=== PATIENT | male | born 1965 | race Caucasian/White ===

== ENCOUNTER → 2016-08-25 | Outpatient (CLI) | payer OTHER ==
[2016-08-25 11:44] LABS: HEMATOCRIT 46.2 % (37.9-51.0); HGB HCT DIFFERENCE 1.8; MEAN CORPUSCULAR HEMOGLOBIN 30.9 pg (27.0-33.4); MEAN CORPUSCULAR HGB CONC 34.7 g/dL (32.0-36.0); MEAN CORPUSCULAR VOLUME 89 fl (80-97); RED BLOOD COUNT 5.18 10^6/uL (4.35-5.55); RED CELL DISTRIBUTION WIDTH 12.7 % (11.5-14.0); WHITE BLOOD COUNT 7.2 10^3/uL (4.0-10.5)
== END ==
LOC: OD 11:16
PROVIDERS: ATTEND Otolaryngology
DX: J32.9 Chronic sinusitis, unspecified (principal)
CPT/HCPCS: 36415; 85027

== ENCOUNTER 2016-09-07 06:26 | Day surgery (SDC) | payer OTHER ==
[2016-09-07] MEDS ORDERED: MIDAZOLAM 2 MG/2 ML INJ ONE (07:08)
[2016-09-07] MEDS ORDERED: HYDROMORPHONE HCL INJ/PF 2 MG/ML AMPULE ONE (07:08)
[2016-09-07] MEDS ORDERED: FENTANYL CITRATE INJ/PF 100 MCG/2 ML AMPUL ONE (07:08)
[2016-09-07] MEDS ORDERED: SUCCINYLCHOLINE CHLORIDE INJ 200 MG/10 ML VIAL ONE (07:09)
[2016-09-07] MEDS ORDERED: PROPOFOL INJ 200 MG/20 ML VIAL IV ONE (07:09)
[2016-09-07] MEDS ORDERED: OXYMETAZOLINE HCL 0.05% NASAL SPRAY 15 ML BOTTLE ONE (07:10)
[2016-09-07] MEDS ORDERED: LIDOCAINE 1%/EPINEPHRINE INJ 20 ML VIAL ONE (07:10)
[2016-09-07] MEDS ORDERED: BUPIVACAINE HCL 0.5%-EPI 1:200000 INJ/PF 30 ML VIAL ONE (07:11)
[2016-09-07] MEDS ORDERED: ONDANSETRON HCL INJ/PF 4 MG/2 ML SDV ONE (07:26)
[2016-09-07] MEDS ORDERED: DEXAMETHASONE SOD PHOS INJ 10 MG/1 ML VIAL ONE (07:26)
[2016-09-07] MEDS ORDERED: ACETAMINOPHEN 100 ML IV ONE (07:27)
[2016-09-07] MEDS ORDERED: DEXMEDETOMIDINE INJ 80 MCG/20 ML VIAL IV ONE (07:28)
[2016-09-07] MEDS ORDERED: CEFAZOLIN 1 GM/D5W RTU 1 GM/50 ML RTUPB IV ONE (08:15)
[2016-09-07] MEDS ORDERED: METOPROLOL TARTRATE PF/INJ 5 MG/5 ML SDV IV ONE (09:23)
--- NOTE | 2016-09-07 10:34 | OPERATIVE REPORT E ---
Operative Report NAME: KATARZYNA BAJWA : 1965 AGE: 50Y DATE OF SURGERY: 09/07/2016 ROOM: PREOPERATIVE DIAGNOSES: 1. Deviated nasal septum. 2. Prominent nasal turbinates. 3. Recurrent bilateral maxillo-ethmoid sinusitis. POSTOPERATIVE DIAGNOSES: 1. Deviated nasal septum. 2. Prominent nasal turbinates. 3. Recurrent bilateral maxillo-ethmoid sinusitis. OPERATIONS: 1. Nasal septoplasty. 2. Bilateral outfracture and coblation inferior turbinates. 3. Bilateral endoscopic supra turbinate antrostomies. SURGEON: LEONIDAS CLAY III, M.D. DIFFUSION OPERATOR: None. ANESTHESIA: General. ESTIMATED BLOOD LOSS: Less than 20 mL. FLUIDS: D5 Ringer's lactate. DRAINS: None. CULTURES: None. PROCEDURE: The patient was properly identified and the operative procedure discussed with the operating room personnel and we were all in agreement to proceed as scheduled with his septoplasty, bilateral outfracture, and coblation of his inferior turbinates and bilateral endoscopic supra- turbinate antrostomies. The patient was prepped and draped in the usual fashion. The nose was anesthetized with Afrin on cottonoids followed by injection with Marcaine 0.5% 1- 200,000 injected into the nasal mucosa. Hemitransfixion incision was developed through the membranous septum and the leading edge of the quadrilateral cartilage exposed. The mucoperichondrium and mucoperiosteum were elevated in the usual fashion. The quadrilateral cartilage was displaced into the right side of the nose. Deformities in the perpendicular plate of the ethmoid were removed with the use of Huong rongeurs. Approximately one half of the quadrilateral cartilage posteriorly was resected to correct the deflection. Approximately 1 mm of the inferior aspect was resected to fit the nasal crest. Each inferior turbinate was coblated along the medial margin and outfractured maximally. Attention was directed to the right middle meatus. The middle turbinate was displaced medially. The natural ostium was identified with a double ball seeker. Removal of the lower portion of the uncinate process was initiated with a microdebrider. The large secondary ostium was then connected to the primary ostium with side biting rongeurs, making an opening of approximately 1 to 1.5 cm into the right maxillary sinus. An identical procedure was performed in the left middle meatus. The wounds were closed in the usual fashion, a quilting suture applied to the nasal septum. Small Merocel packs 1 cm in size wrapped with Gelfoam replaced in each middle meatus and large Merocel packs 8 cm in size were placed in each nasal passage, tied to columella, and taped to the dorsum of the nose. The patient received 1 g of Kefzol intraoperatively and 10 mg of Decadron. He appeared to tolerate his procedure well and was returned to the recovery room in satisfactory condition. DICTATING PHYSICIAN: LEONIDAS CLAY III M.D. [id number] PHY#: [id number] ID: [id number] JOB#: [id number] ACCT: [id number] cc:LEONIDAS CLAY III, M.D. > MTDD
== END 2016-09-07 11:18 | disposition home or self-care (01) ==
LOC: SC 06:26
PROVIDERS: ATTEND Otolaryngology
PROC: 09BM4ZZ Excision of Nasal Septum, Percutaneous Endoscopic Approach (ICD-10-PCS; principal; 2016-09-07 07:30)
PROC: 09SL7ZZ Reposition Nasal Turbinate, Via Natural or Artificial Opening (ICD-10-PCS; 2016-09-07 07:30)
DX: J34.2 Deviated nasal septum (principal); J01.21 Acute recurrent ethmoidal sinusitis; J01.01 Acute recurrent maxillary sinusitis; J30.1 Allergic rhinitis due to pollen; Z79.899 Other long term (current) drug therapy
CPT/HCPCS: 30520; 30930; C1751; J2250; J3490 ×4; J0690; J3010; J1170; J0330; J2405; J2704; J1100; J0131; 160

== ENCOUNTER → 2019-03-12 | Day surgery (SDC) | payer OTHER ==
--- NOTE | 2019-03-12 16:08 | RADIOLOGY REPORT (SQ) ---
EXAM DESCRIPTION: ARTHRO SHOULDER INJECTION; FLUORO/NEEDLE PLACEMENT COMPLETED DATE/TIME: 03/12/2019 3:35 pm REASON FOR STUDY: IMPINGEMENT SYNDROME OF RIGHT SHOULDER M75.41 IMPINGEMENT SYNDROME OF RIGHT SHOUL IFTIKHAR COMPARISON: None. FLUOROSCOPY TIME: 0.4 minutes. 1 image saved to PACS. LIMITATIONS: None. PROCEDURE: Procedure, risks, benefits and alternatives explained to patient who then gave written co nsent. The right shoulder was marked and a time out was called for correct procedure verification. P osterior entry site marked using fluoroscopic guidance. Shoulder prepped and draped using sterile te chnique. Local anesthesia achieved using 1% lidocaine injection. Hypodermic needle introduced into the joint space under direct fluoroscopic visualization. Non-ionic contrast instilled to confirm intr a-articular position. Dilute gadolinium solution then injected. Needle removed and entry site covere d with sterile bandage. No immediate complications noted. TECHNIQUE: Digital images acquired during fluoroscopy and stored on PACS. Patient immediately take n to the MR suite for additional imaging. INJECTION LOCATION: Posterior right shoulder. CONTRAST TYPE AND AMOUNT: 12 mL Dotarem/Saline mixture. IMPRESSION: SUCCESSFUL NEEDLE PLACEMENT AND INJECTION FOR RIGHT SHOULDER MR ARTHROGRAM USING POSTERI OR APPROACH. COMMENT: Quality ID [id number]: Final reports for procedures using fluoroscopy that document radiation exp osure indices, or exposure time and number of fluorographic images (if radiation exposure indices are not available) TECHNICAL DOCUMENTATION: JOB ID: [id number] [email or web address]- All Rights Reserved Reading location - IP/workstation name: [email or web address]
--- NOTE | 2019-03-13 16:49 | RADIOLOGY REPORT (SQ) ---
EXAM DESCRIPTION: MRI RT UPPER JOINT WITH COMPLETED DATE/TIME: 03/12/2019 4:04 pm REASON FOR STUDY: IMPINGEMENT SYNDROME OF RIGHT SHOULDER M75.41 IMPINGEMENT SYNDROME OF RIGHT SHOUL IFTIKHAR COMPARISON: None. TECHNIQUE: Right shoulder images acquired and stored on PACS. Oblique coronal, oblique sagittal, and axial imaging to include fat sensitive sequences as T1, water sensitive sequences as FST2/STIR, and contrast sensitive sequences as FST1. LIMITATIONS: None. FINDINGS: JOINT DISTENTION: Adequate distention for interpretation. BONE MARROW AND CORTEX: Normal. No significant osteophytes. No edema or defects. AC JOINT: Type II acromion. Mild-moderate AC joint arthropathy. GLENOHUMERAL JOINT: No subluxation or dislocation. No focal chondral defects or reactive bone changes . ROTATOR CUFF: Mild tendinosis- partial tears in the distal portions of the supraspinatus and infraspi natus tendons. Contrast in the subacromial bursa is likely due to a small partial full-thickness tea r in the conjoined tendon region. No significant tendon retraction is identified. LABRUM AND BICEPS LABRAL COMPLEX: Normal signal in the rotator interval without tear of the superior glenohumeral ligament. Superior labrum, intra-articular long head biceps intact. Distal biceps in no rmal anatomic location in bicipital groove. No paralabral cysts. INFERIOR LABRAL COMPLEX: Bony glenoid and labrum intact. IGHL intact without thickening or tear. No p aralabral cysts. ADJACENT SOFT TISSUES: No masses or nodes. OTHER: No other significant finding. IMPRESSION: Contrast in the subacromial bursa is likely due to a small partial full-thickness tear i n the conjoined tendon region. No significant tendon retraction is identified.Mild tendinosis- part ial tears in the distal portions of the supraspinatus and infraspinatus tendons. No labral tear identified. TECHNICAL DOCUMENTATION: JOB ID: [id number] [place]-[id number] [employer]- All Rights Reserved Reading location - IP/workstation name: [email or web address]
== END ==
LOC: RAD 13:38
PROVIDERS: ATTEND Specialist/Technologist Athletic Trainer
DX: M75.41 Impingement syndrome of right shoulder (principal)
CPT/HCPCS: 73222; 77002; 23350; A9576

== ENCOUNTER → 2019-04-06 | Outpatient (CLI) | payer OTHER ==
[2019-04-06 15:30] LABS: ABSOLUTE EOSINOPHILS # (AUTO) 0.2 10^3/uL (0.0-0.6); ABSOLUTE LYMPHOCYTES (AUTO) 1.9 10^3/uL (0.5-4.7); ABSOLUTE MONOCYTES (AUTO) 0.6 10^3/uL (0.1-1.4); BASOPHILS % (AUTO) 0.6 % (0-2); EOSINOPHILS % (AUTO) 2.5 % (0-6); HEMATOCRIT 45.7 % (37.9-51.0); HEMOGLOBIN 16.2 g/dL (13.5-17.0); LYMPHOCYTES % (AUTO) 24.3 % (13-45); MEAN CORPUSCULAR HEMOGLOBIN 31.8 pg (27.0-33.4); MEAN CORPUSCULAR HGB CONC 35.3 g/dL (32.0-36.0); MEAN CORPUSCULAR VOLUME 90 fl (80-97); MONOCYTES % (AUTO) 7.8 % (3-13); PLATELET COUNT 237 10^3/uL (150-450); RED BLOOD COUNT 5.08 10^6/uL (4.35-5.55); RED CELL DISTRIBUTION WIDTH 13.3 % (11.5-14.0); SEGMENTED NEUTROPHILS % (AUTO) 64.8 % (42-78); TOTAL CELLS COUNTED % (AUTO) 100 %; WHITE BLOOD COUNT 7.7 10^3/uL (4.0-10.5)
[2019-04-06 15:42] LABS: ALBUMIN 4.8 g/dL (3.5-5.0); ALKALINE PHOSPHATASE 52 U/L (38-126); ANION GAP 12 (5-19); ASPARTATE AMINO TRANSFERASE 37 U/L (17-59); BILIRUBIN,DIRECT 0.1 mg/dL (0.0-0.4); BILIRUBIN,TOTAL 0.7 mg/dL (0.2-1.3); BLOOD UREA NITROGEN 12 mg/dL (7-20); CALCIUM 9.7 mg/dL (8.4-10.2); CARBON DIOXIDE 28 mmol/L (22-30); CHLORIDE 98 mmol/L (98-107); GLUCOSE 110 mg/dL (75-110); POTASSIUM 4.1 mmol/L (3.6-5.0); TOTAL PROTEIN 7.6 g/dL (6.3-8.2)
== END ==
LOC: OD 14:07
PROVIDERS: ATTEND Orthopaedic Surgery Sports Medicine
DX: Z11.2 Encounter for screening for other bacterial diseases (principal); I10 Essential (primary) hypertension
CPT/HCPCS: 36415; 80053; 85025; 87070

== ENCOUNTER 2019-07-07 04:16 | Inpatient (IN) | payer OTHER ==
[2019-07-07] MEDS ORDERED: ONDANSETRON HCL INJ/PF 4 MG/2 ML SDV IV ONE ×2 (04:52→06:13)
[2019-07-07] MEDS ORDERED: MORPHINE SULFATE 10 MG/ML INJ IV ONE ×2 (04:52→06:12)
[2019-07-07] MEDS ORDERED: NORMAL SALINE 1000 ML 1,000 ML IV ONE (04:52)
--- NOTE | 2019-07-07 04:53 | ER Document Report ---
ED GI/ - General Chief Complaint: Abdominal Pain Stated Complaint: STOMACH PAIN Time Seen by Provider: 07/07/19 04:46 Primary Care Provider: GISELE ROSS MD [Primary Care Provider] - Follow up as needed Notes: Patient is a 53-year-old male that comes emergency department for chief complaint of sharp pain in his mid to upper abdomen, pain started during the evening and worsened throughout the night. He denies nausea or vomiting, he had a normal bowel movement within the past day. He denies chest pain, flank pain, or any other symptoms. He has had an appendectomy, he has a history of hypertension and seasonal allergies, he denies smoking, reports rare alcohol, denies recreational drugs. TRAVEL OUTSIDE OF THE [place] IN LAST 30 DAYS: No - Related Data Allergies/Adverse Reactions: No Known Allergies Allergy (Unverified 09/03/16 14:17) Home Medications: lisinopril/HCTZ 20/12.5. zyrtec 10 mg qday. tramadol prn pain recent surg shoulder Past Medical History - General Information source: Patient - Social History Smoking Status: Never Smoker Frequency of alcohol use: Occasional Drug Abuse: None Lives with: Family Family History: Reviewed & Not Pertinent Patient has suicidal ideation: No Patient has homicidal ideation: Yes - Past Medical History Cardiac Medical History: Reports: Hx Hypertension Denies: Hx Heart Attack Pulmonary Medical History: Denies: Hx Asthma Neurological Medical History: Denies: Hx Cerebrovascular Accident, Hx Seizures GI Medical History: Denies: Hx Hepatitis, Hx Hiatal Hernia, Hx Ulcer Infectious Medical History: Denies: Hx Hepatitis Past Surgical History: Reports: Hx Appendectomy. Denies: Hx Open Heart Surgery, Hx Pacemaker Review of Systems - Review of Systems Constitutional: No symptoms reported EENT: No symptoms reported Cardiovascular: No symptoms reported Respiratory: No symptoms reported Gastrointestinal: See HPI Genitourinary: No symptoms reported Male Genitourinary: No symptoms reported Musculoskeletal: No symptoms reported Skin: No symptoms reported Hematologic/Lymphatic: No symptoms reported Neurological/Psychological: No symptoms reported Physical Exam - Vital signs Vitals: Temp Pulse Resp BP Pulse Ox 97.7 F 85 20 155/92 H 100 07/07/19 04:21 07/07/19 04:21 07/07/19 04:21 07/07/19 04:21 07/07/19 04:21 - Notes Notes: GENERAL: Patient appears slightly anxious and slightly uncomfortable but not in severe distress HEAD: Normocephalic, atraumatic. EYES: Pupils equal, round, and reactive to light. Extraocular movements intact. ENT: Oral mucosa moist, tongue midline. Oropharynx unremarkable. Airway patent. LUNGS: Clear to auscultation bilaterally, no wheezes, rales, or rhonchi. No respiratory distress. HEART: Regular rate and rhythm. No murmur ABDOMEN: Patient is diffusely tender over the mid to upper abdomen with wincing and some guarding. There appears to be diastases recti but there is no overt hernia or incarcerated hernia noted. There is no rigidity or rebound te nderness. Bowel sounds are present throughout. GENITOURINARY: No swelling, tenderness, or concerning findings noted EXTREMITIES: Moves all 4 extremities spontaneously. No edema, normal radial and dorsalis pedis pulses bilaterally. No cyanosis. BACK: no cervical, thoracic, lumbar midline tenderness. No saddle anesthesia, normal distal neurovascular exam. NEUROLOGICAL: Alert and oriented x3. Normal speech. Cranial nerves II through XII grossly intact. PSYCH: Slightly anxious SKIN: Warm, dry, normal turgor. No rashes or lesions noted. Course - Re-evaluation Re-evalutation: Patient is uncomfortable and very tender in the general upper abdomen. His vital signs are unremarkable. CBC unremarkable except for elevated hemoglobin, urinalysis unremarkable other than elevated specific gravity. Chemistry still pending. I reevaluated patient, he is still uncomfortable, he will be remedicated. Chemistry nonspecific, lipase indicates pancreatitis with lipase of 1750. Patient still has his gallbladder, ultrasound will be performed. Patient denies any recent alcohol. 07/07/19 07:34 Patient does look a lot more comfortable after being medicated again. Ultrasound does not show any concerning findings. I discussed with patient. Because of the amount of pain patient was initially, his elevated lipase, the fact that it took multiple doses to get amount of pain, and the fact that we do not know the cause of his pancreatitis at this point, patient is somewhat concerned about going home. Will discuss with hospitalist for admission for acute pancreatitis requiring IV pain medication. 07/07/19 Discussed with Erik Multani PA-C, patient will be accepted to his service with medical floor observation, he requests CT of the abdomen pelvis with IV contrast and to be called back with the results. - Vital Signs Vital signs: Temp Pulse Resp BP Pulse Ox 97.7 F 85 20 155/92 H 100 07/07/19 04:21 07/07/19 04:21 07/07/19 04:21 07/07/19 04:21 07/07/19 04:21 - Laboratory Result Diagrams: 07/07/19 05:13 07/07/19 05:13 Laboratory results interpreted by me: 07/07/19 07/07/19 05:13 05:13 WBC 10.8 H Hgb 17.4 H Carbon Dioxide 32 H Glucose 122 H Lipase 1747.4 H Discharge - Discharge Clinical Impression: Upper abdominal pain Acute pancreatitis Qualifiers: Pancreatitis type: unspecified pancreatitis type Acute pancreatitis complic ation: no infection or necrosis Qualified Code(s): K85.90 - Acute pancreatitis without necrosis or infection, unspecified Condition: Stable Disposition: ADMITTED OBSERVATION Admitting Provider: Erik Multani PA-C Unit Admitted: Medical Floor Referrals: GISELE ROSS MD [Primary Care Provider] - Follow up as needed
[2019-07-07 05:00] LABS: APPEARANCE,URINE CLEAR; BILIRUBIN,URINE NEGATIVE (NEGATIVE); COLOR,URINE YELLOW; GLUCOSE, URINE NEGATIVE (NEGATIVE); KETONES,URINE NEGATIVE (NEGATIVE); LEUKOCYTE ESTERASE,URINE NEGATIVE (NEGATIVE); NITRITE,URINE NEGATIVE (NEGATIVE); PROTEIN,URINE NEGATIVE (NEGATIVE); URINE SPECIFIC GRAVITY 1.021; UROBILINOGEN,URINE NEGATIVE mg/dL (<2.0)
[2019-07-07 05:37] LABS: ABSOLUTE BASOPHILS # (AUTO) 0.1 10^3/uL (0.0-0.2); ABSOLUTE EOSINOPHILS # (AUTO) 0.1 10^3/uL (0.0-0.6); ABSOLUTE LYMPHOCYTES (AUTO) 2.1 10^3/uL (0.5-4.7); ABSOLUTE MONOCYTES (AUTO) 0.8 10^3/uL (0.1-1.4); ABSOLUTE NEUT (AUTO) 7.8 10^3/uL (1.7-8.2); BASOPHILS % (AUTO) 0.5 % (0-2); EOSINOPHILS % (AUTO) 0.8 % (0-6); HEMATOCRIT 49.5 % (37.9-51.0); HEMOGLOBIN 17.4 g/dL (13.5-17.0); LYMPHOCYTES % (AUTO) 19.5 % (13-45); MEAN CORPUSCULAR HEMOGLOBIN 31.6 pg (27.0-33.4); MEAN CORPUSCULAR HGB CONC 35.2 g/dL (32.0-36.0); MEAN CORPUSCULAR VOLUME 90 fl (80-97); MONOCYTES % (AUTO) 7.5 % (3-13); PLATELET COUNT 218 10^3/uL (150-450); RED BLOOD COUNT 5.53 10^6/uL (4.35-5.55); SEGMENTED NEUTROPHILS % (AUTO) 71.7 % (42-78); TOTAL CELLS COUNTED % (AUTO) 100 %; WHITE BLOOD COUNT 10.8 10^3/uL (4.0-10.5)
[2019-07-07 06:06] LABS: ALBUMIN 4.7 g/dL (3.5-5.0); ALKALINE PHOSPHATASE 70 U/L (38-126); ANION GAP 8 (5-19); ASPARTATE AMINO TRANSFERASE 32 U/L (17-59); BILIRUBIN,DIRECT 0.1 mg/dL (0.0-0.4); BILIRUBIN,TOTAL 0.8 mg/dL (0.2-1.3); BLOOD UREA NITROGEN 15 mg/dL (7-20); CALCIUM 9.8 mg/dL (8.4-10.2); CARBON DIOXIDE 32 mmol/L (22-30); CHLORIDE 100 mmol/L (98-107); GLUCOSE 122 mg/dL (75-110); POTASSIUM 4.5 mmol/L (3.6-5.0); TOTAL PROTEIN 7.6 g/dL (6.3-8.2)
--- NOTE | 2019-07-07 07:35 | RADIOLOGY REPORT (SQ) ---
EXAM DESCRIPTION: US ABDOMEN LIMITED COMPLETED DATE/TME: 07/07/2019 06:09 CLINICAL HISTORY: upper abd pain, elevated lipase COMPARISON: None. TECHNIQUE: Real-time sonographic images of the right upper abdomen were obtained using a curved multihertz transducer. FINDINGS: Pancreas: Suboptimal evaluation due to overlying bowel gas. Vascular: Suboptimal evaluation due to overlying bowel gas. Liver: The liver has normal contour and increased echogenicity. Hepatopedal flow in the portal vein. Findings confirmed with color and spectral Doppler imaging. The common bile duct measures 0.5 cm. Gallbladder: The gallbladder has a normal appearance. No gallstones identified. No wall thickening or pericholecystic fluid. Right Kidney: The right kidney measures 12.1 cm in length. No hydronephrosis, solid renal mass, or shadowing calculi. IMPRESSION: 1. No gallstones. 2. Hepatic steatosis.
--- NOTE | 2019-07-07 09:27 | RADIOLOGY REPORT (SQ) ---
EXAM DESCRIPTION: CT ABD/PELVIS WITH IV ONLY COMPLETED DATE/TIME: 07/07/2019 8:19 am REASON FOR STUDY: sharp mid abd pain, elevated lipase COMPARISON: None. TECHNIQUE: CT scan of the abdomen and pelvis performed using helical scanning technique with dynamic intravenous contrast injection. No oral contrast. Images reviewed with lung, soft tissue, and bone windows. Reconstructed coronal and sagittal MPR images reviewed. Delayed images for evaluation of the urinary system also acquired. All images stored on PACS. All CT scanners at this facility use dose modulation, iterative reconstruction, and/or weight based d osing when appropriate to reduce radiation dose to as low as reasonably achievable (ALARA). [facility]: Dose Right [facility]: CareDose [facility]: Dose Right [facility]: Teradose 4D [facility]: Synthorx CONTRAST TYPE AND DOSE: contrast/concentration: Isovue 350.00 mg/ml; Total Contrast Delivered: 100.0 ml; Total Saline Delivered: 45.0 ml RENAL FUNCTION: GFR > 60. RADIATION DOSE: CT Rad equipment meets quality standard of care and radiation dose reduction techniq ues were employed. CTDIvol: 17.3 - 19.1 mGy. DLP: 2189 mGy-cm.. LIMITATIONS: None. FINDINGS: LOWER CHEST: No significant findings. No nodules or infiltrates. LIVER: Normal size. No masses. No dilated ducts. SPLEEN: Normal size. No focal lesions. PANCREAS: No masses fluid collections. Minimal stranding along the pancreatic head indicating mild e jose pancreatitis. GALLBLADDER: No identified stones by CT criteria. No inflammatory changes to suggest cholecystitis. ADRENAL GLANDS: No significant masses or asymmetry. RIGHT KIDNEY AND URETER: No solid masses. No significant calcifications. No hydronephrosis or hyd roureter. LEFT KIDNEY AND URETER: No solid masses. No significant calcifications. No hydronephrosis or hydr oureter. AORTA AND VESSELS: No aneurysm. No dissection. Renal arteries, SMA, celiac without stenosis. RETROPERITONEUM: No retroperitoneal adenopathy, hemorrhage or masses. BOWEL AND PERITONEAL CAVITY: No masses or inflammatory changes. No free fluid or peritoneal masses. APPENDIX: Normal. PELVIS: No mass. No free fluid. Normal bladder. ABDOMINAL WALL: No masses. No hernias. BONES: No significant or acute findings. OTHER: No other significant finding. IMPRESSION: Peripancreatic fat stranding indicating mild early pancreatitis. TECHNICAL DOCUMENTATION: JOB ID: [id number] Quality ID # [id number]: Final reports with documentation of one or more dose reduction techniques (e.g., Au tomated exposure control, adjustment of the mA and/or kV according to patient size, use of iterative reconstruction technique) 2010 [employer]- All Rights Reserved Reading location - IP/workstation name: [email or web address]
[2019-07-07] MEDS ORDERED: DEXTROSE 50%-WATER 25 GM/50 ML DISP.SYRIN IV PRN ×2 (10:15)
[2019-07-07] MEDS ORDERED: DEXTROSE 40% GEL 15 GM TUBE PO PRN ×2 (10:15)
[2019-07-07] MEDS ORDERED: GLUCAGON,HUMAN RECOMB 1 MG INJ SUBCUT PRN (10:15)
[2019-07-07] MEDS ORDERED: HYDRALAZINE HCL INJ/PF 20 MG/1 ML SDV IV PRN (10:42)
--- NOTE | 2019-07-07 10:48 | PDOC H&P ---
History of Present Illness Admission Date/PCP: 07/07/19 07:56 GISELE ROSS MD History of Present Illness: KATARZYNA BAJWA is a 53 year old male who comes into the emergency room with about a 12-hour history now of abdominal pain. Patient states that last night after eating at [employer] about an hour later he started having abdominal pain. Really states he did have anything unusual and the pain started in the epigastric region, all throughout the night it was like a 6 or 7 out of 10. Pain is currently a 2 out of 10 which may be related to IV morphine. Patient states he had no nausea no vomiting and no diarrhea last night. No one else in the family is sick or having pain. Patient's comments that on she felt like the patient may be a little more distended with his abdomen but patient denies having to loosen his belt or pants or feeling uncomfortable . Patient's other past medical history includes hypertension and a previous appendectomy, as well as 2 months ago having his right shoulder repaired for what sounds to be rotator cuff. States he drinks alcohol maybe 2 or 3 times per year and last alcohol was probably a couple of months ago. Never in excess. Patient did recently start in the last 2 weeks tramadol for his right shoulder pain however he has been taking it only sporadically. Patient does not smoke.. 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 [employer] Past Medical History Cardiac Medical History: Reports: Hypertension Denies: Myocardial Infarction Pulmonary Medical History: Denies: Asthma Neurological Medical History: Denies: Seizures GI Medical History: Denies: Hepatitis, Hiatal Hernia Hematology: Denies: Anemia, Sickle Cell Disease Past Surgical History Past Surgical History: Reports: Appendectomy, Orthopedic Surgery Denies: Pacemaker Social History Lives with: Family Smoking Status: Never Smoker - Advance Directive Resuscitation Status: Full Code Family History Family History: Reviewed & Not Pertinent Parental Family History Reviewed: No Children Family History Reviewed: No Sibling(s) Family History Reviewed.: No Medication/Allergy Home Medications: No Home Medications 09/03/16 Allergies/Adverse Reactions: No Known Allergies Allergy (Unverified 09/03/16 14:17) Review of Systems Constitutional: ABSENT: chills, fever(s), headache(s), weight gain, weight loss Cardiovascular: ABSENT: chest pain, dyspnea on exertion, edema, orthropnea, palpitations Respiratory: ABSENT: cough, hemoptysis Gastrointestinal: PRESENT: abdominal pain. ABSENT: constipation, diarrhea, hematemesis, hematochezia, nausea, vomiting Neurological: ABSENT: abnormal gait, abnormal speech, confusion, dizziness, focal weakness, syncope Psychiatric: ABSENT: anxiety, depression, homidical ideation, suicidal ideation Physical Exam Vital Signs: Temp Pulse Resp BP Pulse Ox 97.7 F 85 20 155/92 H 100 07/07/19 04:21 07/07/19 04:21 07/07/19 04:21 07/07/19 04:21 07/07/19 04:21 Intake & Output 07/06/19 07/07/19 07/08/19 06:59 06:59 06:59 Intake Total 1000 Balance 1000 Weight 99.1 kg General appearance: PRESENT: no acute distress, well-developed, well-nourished Respiratory exam: PRESENT: clear to auscultation case. ABSENT: rales, rhonchi, wheezes Cardiovascular exam: PRESENT: RRR. ABSENT: diastolic murmur, rubs, systolic murmur GI/Abdominal exam: PRESENT: distended, hypoactive bowel sounds - No guarding no rebound, tenderness - Both right and left upper quadrants as well as epigastric region Neurological exam: PRESENT: alert, awake, oriented to person, oriented to place, oriented to time, oriented to situation, CN II-XII grossly intact. ABSENT: motor sensory deficit Psychiatric exam: PRESENT: appropriate affect, normal mood. ABSENT: homicidal ideation, suicidal ideation Results Laboratory Results: 07/07/19 05:13 07/07/19 05:13 07/07/19 07/07/19 07/07/19 04:35 05:13 05:13 WBC 10.8 H RBC 5.53 Hgb 17.4 H Hct 49.5 MCV 90 MCH 31.6 MCHC 35.2 RDW 13.0 Plt Count 218 Seg Neutrophils % 71.7 Sodium 139.5 Potassium 4.5 Chloride 100 Carbon Dioxide 32 H Anion Gap 8 BUN 15 Creatinine 1.01 Est GFR ( Amer) > 60 Glucose 122 H Calcium 9.8 Total Bilirubin 0.8 AST 32 Alkaline Phosphatase 70 Total Protein 7.6 Albumin 4.7 Lipase 1747.4 H Urine Color YELLOW Urine Appearance CLEAR Urine pH 5.0 Ur Specific [place] 1.021 Urine Protein NEGATIVE Urine Glucose (UA) NEGATIVE Urine Ketones NEGATIVE Urine Blood NEGATIVE Urine Nitrite NEGATIVE Ur Leukocyte Esterase NEGATIVE Urine WBC (Auto) 1 Urine RBC (Auto) 1 Impressions: Abdomen Ultrasound 07/07/19 06:09 IMPRESSION: 1. No gallstones. 2. Hepatic steatosis. Abdomen/Pelvis CT 07/07/19 07:46 IMPRESSION: Peripancreatic fat stranding indicating mild early pancreatitis. Assessment and Plan - Diagnosis (1) Hypertension Is this a current diagnosis for this admission?: Yes (2) Obesity Is this a current diagnosis for this admission?: Yes (3) Rotator cuff arthropathy of right shoulder Is this a current diagnosis for this admission?: Yes (4) Acute pancreatitis Qualifiers: Pancreatitis type: unspecified pancreatitis type Acute pancreatitis complication: no infection or necrosis Qualified Code(s): K85.90 - Acute pancreatitis without necrosis or infection, unspecified Is this a current diagnosis for this admission?: Yes (5) Upper abdominal pain Is this a current diagnosis for this admission?: Yes - Plan Summary Summary: 07/07/2019 Vital signs are stable pulse is 85 patient is afebrile blood pressure slightly elevated 155/92, oxygen saturation is 100% on room air Told patient and his that will get a keep him n.p.o. except for possibly sips of water with medications although this will only be for Pancrease. We will give him IV fluids. The pain medications. Repeat serial lipase levels CT scan shows early pancreatitis which may be on the basis of the tramadol Keep patient comfortable with IV morphine PRN. Patient is medically stable to move to the floor - Time Time Spent with patient: 35 or more minutes
[2019-07-07 11:16] LABS: AMYLASE 251 U/L (30-110); CREATINE KINASE 81 U/L (55-170)
[2019-07-07] MEDS: NORMAL SALINE 1000 ML 1,000 ML IV PRN (11:42)
[2019-07-07] MEDS: FAMOTIDINE INJ/PF 20 MG/2 ML SDV IV SCH ×2 (11:45→21:31)
[2019-07-07] MEDS ORDERED: ACETAMINOPHEN 325 MG TABLET PO ONE (12:30)
[2019-07-07] MEDS: MORPHINE SULFATE 10 MG/ML INJ IV PRN ×2 (15:07→21:31)
[2019-07-07] MEDS: ONDANSETRON HCL INJ/PF 4 MG/2 ML SDV IV PRN ×2 (15:07→21:31)
[2019-07-07] MEDS: LIPASE/PROTEASE/AMYLASE 1 CAP CAPSULE.DR PO SCH (15:24)
[2019-07-08] MEDS: NORMAL SALINE 1000 ML 1,000 ML IV PRN ×3 (04:57→18:43)
[2019-07-08 05:35] LABS: ABSOLUTE EOSINOPHILS # (AUTO) 0.1 10^3/uL (0.0-0.6); ABSOLUTE LYMPHOCYTES (AUTO) 1.2 10^3/uL (0.5-4.7); ABSOLUTE NEUT (AUTO) 7.8 10^3/uL (1.7-8.2); BASOPHILS % (AUTO) 0.2 % (0-2); EOSINOPHILS % (AUTO) 0.5 % (0-6); HEMATOCRIT 44.4 % (37.9-51.0); HEMOGLOBIN 15.4 g/dL (13.5-17.0); MEAN CORPUSCULAR HGB CONC 34.7 g/dL (32.0-36.0); MEAN CORPUSCULAR VOLUME 89 fl (80-97); MONOCYTES % (AUTO) 9.8 % (3-13); PLATELET COUNT 184 10^3/uL (150-450); RED BLOOD COUNT 4.97 10^6/uL (4.35-5.55); RED CELL DISTRIBUTION WIDTH 12.8 % (11.5-14.0); SEGMENTED NEUTROPHILS % (AUTO) 77.5 % (42-78); TOTAL CELLS COUNTED % (AUTO) 100 %
[2019-07-08 05:48] LABS: ALBUMIN 3.9 g/dL (3.5-5.0); ALKALINE PHOSPHATASE 60 U/L (38-126); ANION GAP 9 (5-19); ASPARTATE AMINO TRANSFERASE 27 U/L (17-59); BILIRUBIN,DIRECT 0.2 mg/dL (0.0-0.4); BILIRUBIN,TOTAL 1.8 mg/dL (0.2-1.3); BLOOD UREA NITROGEN 13 mg/dL (7-20); CALCIUM 8.9 mg/dL (8.4-10.2); CARBON DIOXIDE 27 mmol/L (22-30); CHLORIDE 101 mmol/L (98-107); CHOLESTEROL 154.37 mg/dL (0-200); GLUCOSE 94 mg/dL (75-110); POTASSIUM 4.4 mmol/L (3.6-5.0); TOTAL PROTEIN 6.6 g/dL (6.3-8.2); TRIGLYCERIDES 84 mg/dL (<150)
[2019-07-08 05:59] LABS: DIRECT LDL 104 mg/dL (<100)
[2019-07-08] MEDS: FAMOTIDINE INJ/PF 20 MG/2 ML SDV IV SCH ×2 (09:30→23:03)
[2019-07-08] MEDS: LISINOPRIL 10 MG TABLET PO SCH (09:30)
[2019-07-08] MEDS: HYDROCHLOROTHIAZIDE 12.5 MG TABLET PO SCH (09:30)
[2019-07-08] MEDS: ENOXAPARIN SODIUM INJ 40 MG/0.4 ML DISP.SYRIN SUBCUT SCH (09:31)
[2019-07-08] MEDS: LIPASE/PROTEASE/AMYLASE 1 CAP CAPSULE.DR PO SCH ×2 (09:32→15:16)
[2019-07-08] MEDS ORDERED: (PENDING PHARMACY ID) (Lisinopril/Hydrochlorothiazide [Lisinopril-Hctz 20-12.5 Mg Tab] 1 E PO SCH (10:00)
[2019-07-08] MEDS: ACETAMINOPHEN 325 MG TABLET PO PRN ×2 (10:42→20:32)
--- NOTE | 2019-07-08 14:09 | PDOC PROGRESS REPORT ---
Subjective Progress Note for:: 07/08/19 Reason For Visit: PANCREATITIS, ABDOMINAL PAIN, OBSEITY, RIGHT 07/08/2019 New onset mild pancreatitis, hypertension, obesity Physical Exam Vital Signs: Temp Pulse Resp BP Pulse Ox 99.4 F 89 18 140/75 H 95 07/08/19 11:12 07/08/19 11:12 07/08/19 11:12 07/08/19 11:12 07/08/19 11:12 Intake & Output 07/07/19 07/08/19 07/09/19 06:59 06:59 06:59 Intake Total 1000 1000 865 Balance 1000 1000 865 Weight 99.1 kg 99.6 kg General appearance: PRESENT: no acute distress Respiratory exam: PRESENT: clear to auscultation case. ABSENT: rales, rhonchi, wheezes Cardiovascular exam: PRESENT: RRR. ABSENT: diastolic murmur, rubs, systolic murmur GI/Abdominal exam: PRESENT: soft Neurological exam: PRESENT: alert, awake, oriented to person, oriented to place, oriented to time, oriented to situation, CN II-XII grossly intact. ABSENT: motor sensory deficit Psychiatric exam: PRESENT: appropriate affect, normal mood. ABSENT: homicidal i deation, suicidal ideation Results Laboratory Results: 07/08/19 05:05 07/08/19 05:05 07/08/19 07/08/19 07/08/19 05:05 05:05 05:05 WBC 10.0 RBC 4.97 Hgb 15.4 Hct 44.4 MCV 89 MCH 31.0 MCHC 34.7 RDW 12.8 Plt Count 184 Seg Neutrophils % 77.5 Sodium 136.7 L Potassium 4.4 Chloride 101 Carbon Dioxide 27 Anion Gap 9 BUN 13 Creatinine 1.03 Est GFR ( Amer) > 60 Glucose 94 Calcium 8.9 Magnesium 1.8 Total Bilirubin 1.8 H AST 27 Alkaline Phosphatase 60 Total Protein 6.6 Albumin 3.9 Triglycerides 84 Cholesterol 154.37 LDL Cholesterol Direct 104 H VLDL Cholesterol 17.0 HDL Cholesterol 44 Amylase 148 H Lipase 516.8 H 07/07/19 05:13 Creatine Kinase 81 Impressions: Abdomen Ultrasound 07/07/19 06:09 IMPRESSION: 1. No gallstones. 2. Hepatic steatosis. Abdomen/Pelvis CT 07/07/19 07:46 IMPRESSION: Peripancreatic fat stranding indicating mild early pancreatitis. Assessment and Plan - Diagnosis (1) Hypertension Is this a current diagnosis for this admission?: Yes (2) Obesity Is this a current diagnosis for this admission?: Yes (3) Rotator cuff arthropathy of right shoulder Is this a current diagnosis for this admission?: Yes (4) Acute pancreatitis Qualifiers: Pancreatitis type: unspecified pancreatitis type Acute pancreatitis complication: no infection or necrosis Qualified Code(s): K85.90 - Acute pancreatitis without necrosis or infection, unspecified Is this a current diagnosis for this admission?: Yes (5) Upper abdominal pain Is this a current diagnosis for this admission?: Yes - Plan Summary Summary: 07/07/2019 Vital signs are stable pulse is 85 patient is afebrile blood pressure slightly elevated 155/92, oxygen saturation is 100% on room air Told patient and his that will get a keep him n.p.o. except for possibly sips of water with medications although this will only be for Pancrease. We will give him IV fluids. The pain medications. Repeat serial lipase levels CT scan shows early pancreatitis which may be on the basis of the tramadol Keep patient comfortable with IV morphine PRN. Patient is medically stable to move to the floor 07/08/2019 Patient is using very little pain medication This morning patient's temperature was 99.31 and later it was 99.4. On admission it was 97.7 Pressure is 142/88. Restarted his lisinopril/CTZ today. Blood cell count on admission was 10.8 this morning it was 10.0 Lipase on admission was 1747 today it had gone down to 516, amylase on admission was 251 today it was 148 He started him on clear liquids this morning and told the nurse to advance diet as tolerated. Patient was having no significant abdominal pain I anticipate discharging him to home tomorrow if he does well today on his diet His is been in the room at all times when I was speaking with the patient, they have no questions - Time Time Spent with patient: 25-34 minutes
[2019-07-08] MEDS: MORPHINE SULFATE 10 MG/ML INJ IV PRN ×2 (15:16→23:03)
[2019-07-08] MEDS: ONDANSETRON HCL INJ/PF 4 MG/2 ML SDV IV PRN ×2 (15:16→23:03)
[2019-07-09] MEDS: NORMAL SALINE 1000 ML 1,000 ML IV PRN ×3 (02:53→22:51)
[2019-07-09 06:23] LABS: ABSOLUTE EOSINOPHILS # (AUTO) 0.1 10^3/uL (0.0-0.6); ABSOLUTE LYMPHOCYTES (AUTO) 1.3 10^3/uL (0.5-4.7); ABSOLUTE MONOCYTES (AUTO) 1.6 10^3/uL (0.1-1.4); ABSOLUTE NEUT (AUTO) 10.9 10^3/uL (1.7-8.2); BASOPHILS % (AUTO) 0.2 % (0-2); EOSINOPHILS % (AUTO) 0.7 % (0-6); HEMATOCRIT 41.5 % (37.9-51.0); HEMOGLOBIN 14.6 g/dL (13.5-17.0); LYMPHOCYTES % (AUTO) 9.6 % (13-45); MEAN CORPUSCULAR HEMOGLOBIN 31.7 pg (27.0-33.4); MEAN CORPUSCULAR HGB CONC 35.2 g/dL (32.0-36.0); MEAN CORPUSCULAR VOLUME 90 fl (80-97); MONOCYTES % (AUTO) 11.4 % (3-13); PLATELET COUNT 175 10^3/uL (150-450); RED BLOOD COUNT 4.62 10^6/uL (4.35-5.55); RED CELL DISTRIBUTION WIDTH 12.8 % (11.5-14.0); SEGMENTED NEUTROPHILS % (AUTO) 78.1 % (42-78); TOTAL CELLS COUNTED % (AUTO) 100 %
[2019-07-09] MEDS: LIPASE/PROTEASE/AMYLASE 1 CAP CAPSULE.DR PO SCH ×2 (07:57→16:42)
[2019-07-09] MEDS: ENOXAPARIN SODIUM INJ 40 MG/0.4 ML DISP.SYRIN SUBCUT SCH (10:00)
[2019-07-09] MEDS: HYDROCHLOROTHIAZIDE 12.5 MG TABLET PO SCH (10:00)
[2019-07-09] MEDS: FAMOTIDINE INJ/PF 20 MG/2 ML SDV IV SCH ×2 (10:18→22:50)
[2019-07-09] MEDS: LISINOPRIL 10 MG TABLET PO SCH (10:18)
[2019-07-09] MEDS: ACETAMINOPHEN 325 MG TABLET PO PRN (10:26)
[2019-07-09] MEDS ORDERED: POLYETHYLENE GLYCOL 3350 POWDER 17 GM/1 PACKET PO ONE (16:00)
--- NOTE | 2019-07-09 16:35 | PDOC PROGRESS REPORT ---
Subjective Progress Note for:: 07/09/19 Reason For Visit: PANCREATITIS, ABDOMINAL PAIN, OBSEITY, RIGHT 07/09/2019 Abdominal pain, new onset pancreatitis, hypertension, obesity Physical Exam Vital Signs: Temp Pulse Resp BP Pulse Ox 99.6 F 105 H 24 H 140/74 H 99 07/09/19 11:13 07/09/19 11:13 07/09/19 11:13 07/09/19 11:13 07/09/19 11:13 Intake & Output 07/08/19 07/09/19 07/10/19 06:59 06:59 06:59 Intake Total 1000 3491 1485 Output Total 3000 Balance 3137 853 4985 Weight 99.6 kg 99.5 kg General appearance: PRESENT: mild distress, other - After patient eats he just has a little bit of mild pain but it is significantly better than on admission Respiratory exam: PRESENT: clear to auscultation case. ABSENT: rales, rhonchi, wheezes Cardiovascular exam: PRESENT: RRR. ABSENT: diastolic murmur, rubs, systolic murmur GI/Abdominal exam: PRESENT: soft, tenderness - Mild epigastric tenderness Neurological exam: PRESENT: alert, awake, oriented to person, oriented to place, oriented to time, oriented to situation, CN II-XII grossly intact. ABSENT: motor sensory deficit Psychiatric exam: PRESENT: appropriate affect, normal mood. ABSENT: homicidal ideation, suicidal ideation Results Laboratory Results: 07/09/19 05:58 07/08/19 05:05 07/09/19 07/09/19 05:58 05:58 WBC 14.0 H RBC 4.62 Hgb 14.6 Hct 41.5 MCV 90 MCH 31.7 MCHC 35.2 RDW 12.8 Plt Count 175 Seg Neutrophils % 78.1 H Lipase 86.4 07/07/19 05:13 Creatine Kinase 81 Impressions: Abdomen Ultrasound 07/07/19 06:09 IMPRESSION: 1. No gallstones. 2. Hepatic steatosis. Abdomen/Pelvis CT 07/07/19 07:46 IMPRESSION: Peripancreatic fat stranding indicating mild early pancreatitis. Assessment and Plan - Diagnosis (1) Hypertension Is this a current diagnosis for this admission?: Yes (2) Obesity Is this a current diagnosis for this admission?: Yes (3) Rotator cuff arthropathy of right shoulder Is this a current diagnosis for this admission?: Yes (4) Acute pancreatitis Qualifiers: Pancreatitis type: unspecified pancreatitis type Acute pancreatitis complication: no infection or necrosis Qualified Code(s): K85.90 - Acute pancreatitis without necrosis or infection, unspecified Is this a current diagnosis for this admission?: Yes (5) Upper abdominal pain Is this a current diagnosis for this admission?: Yes - Plan Summary Summary: 07/07/2019 Vital signs are stable pulse is 85 patient is afebrile blood pressure slightly elevated 155/92, oxygen saturation is 100% on room air Told patient and his that will get a keep him n.p.o. except for possibly sips of water with medications although this will only be for Pancrease. We cecilia l give him IV fluids. The pain medications. Repeat serial lipase levels CT scan shows early pancreatitis which may be on the basis of the tramadol Keep patient comfortable with IV morphine PRN. Patient is medically stable to move to the floor 07/08/2019 Patient is using very little pain medication This morning patient's temperature was 99.31 and later it was 99.4. On admission it was 97.7 Pressure is 142/88. Restarted his lisinopril/CTZ today. Blood cell count on admission was 10.8 this morning it was 10.0 Lipase on admission was 1747 today it had gone down to 516, amylase on admission was 251 today it was 148 He started him on clear liquids this morning and told the nurse to advance diet as tolerated. Patient was having no significant abdominal pain I anticipate discharging him to home tomorrow if he does well today on his diet His is been in the room at all times when I was speaking with the patient, they have no questions 07/09/2019 Patient's vital signs temperature 98.4 pulse is up slightly 110 blood pressure 138/77 96% saturation on room air White blood cell count is gone up slightly to 14,000 Lipase is back to normal at 86 I told patient that if he did well with his meals today that I would discharge him late in the afternoon. Ever he still having little discomfort with meals someone to keep him overnight. Also because his respirations are up slightly he is a little tachycardic and his white count is gone up I am going to repeat his CT scan of the abdomen and pelvis with IV contrast to noon. If that is unchanged or no worse anticipate he can go home tomorrow morning. Patient is using hardly no analgesics - Time Time Spent with patient: 25-34 minutes
[2019-07-09 17:53] LABS: ANION GAP 11 (5-19); BLOOD UREA NITROGEN 9 mg/dL (7-20); CALCIUM 9.1 mg/dL (8.4-10.2); CARBON DIOXIDE 27 mmol/L (22-30); CHLORIDE 98 mmol/L (98-107); GLUCOSE 122 mg/dL (75-110); POTASSIUM 3.7 mmol/L (3.6-5.0)
[2019-07-09] MEDS: MORPHINE SULFATE 10 MG/ML INJ IV PRN (22:50)
[2019-07-09] MEDS: ONDANSETRON HCL INJ/PF 4 MG/2 ML SDV IV PRN (22:55)
[2019-07-10 05:40] LABS: ABSOLUTE BASOPHILS # (AUTO) 0.1 10^3/uL (0.0-0.2); ABSOLUTE EOSINOPHILS # (AUTO) 0.2 10^3/uL (0.0-0.6); ABSOLUTE LYMPHOCYTES (AUTO) 1.4 10^3/uL (0.5-4.7); ABSOLUTE MONOCYTES (AUTO) 1.2 10^3/uL (0.1-1.4); ABSOLUTE NEUT (AUTO) 9.3 10^3/uL (1.7-8.2); BASOPHILS % (AUTO) 0.4 % (0-2); EOSINOPHILS % (AUTO) 1.6 % (0-6); HEMATOCRIT 38.9 % (37.9-51.0); HEMOGLOBIN 13.9 g/dL (13.5-17.0); LYMPHOCYTES % (AUTO) 11.7 % (13-45); MEAN CORPUSCULAR HEMOGLOBIN 31.7 pg (27.0-33.4); MEAN CORPUSCULAR HGB CONC 35.8 g/dL (32.0-36.0); MEAN CORPUSCULAR VOLUME 89 fl (80-97); MONOCYTES % (AUTO) 9.7 % (3-13); PLATELET COUNT 175 10^3/uL (150-450); RED BLOOD COUNT 4.39 10^6/uL (4.35-5.55); RED CELL DISTRIBUTION WIDTH 12.5 % (11.5-14.0); SEGMENTED NEUTROPHILS % (AUTO) 76.6 % (42-78); TOTAL CELLS COUNTED % (AUTO) 100 %; WHITE BLOOD COUNT 12.1 10^3/uL (4.0-10.5)
[2019-07-10 05:59] LABS: ANION GAP 10 (5-19); BLOOD UREA NITROGEN 9 mg/dL (7-20); CALCIUM 8.8 mg/dL (8.4-10.2); CARBON DIOXIDE 26 mmol/L (22-30); CHLORIDE 101 mmol/L (98-107); GLUCOSE 106 mg/dL (75-110); POTASSIUM 4.1 mmol/L (3.6-5.0)
[2019-07-10] MEDS: NORMAL SALINE 1000 ML 1,000 ML IV PRN ×2 (06:55→16:08)
[2019-07-10] MEDS: LIPASE/PROTEASE/AMYLASE 1 CAP CAPSULE.DR PO SCH ×2 (07:36→17:17)
[2019-07-10] MEDS: ENOXAPARIN SODIUM INJ 40 MG/0.4 ML DISP.SYRIN SUBCUT SCH (09:46)
[2019-07-10] MEDS: FAMOTIDINE INJ/PF 20 MG/2 ML SDV IV SCH (09:48)
[2019-07-10] MEDS: LISINOPRIL 10 MG TABLET PO SCH (09:48)
[2019-07-10] MEDS: HYDROCHLOROTHIAZIDE 12.5 MG TABLET PO SCH (09:48)
--- NOTE | 2019-07-10 10:04 | RADIOLOGY REPORT (SQ) ---
EXAM DESCRIPTION: CT ABD/PELVIS WITH IV ONLY COMPLETED DATE/TIME: 07/09/2019 7:14 pm REASON FOR STUDY: pancreatitis, increased WBC COMPARISON: 07/07/2019. TECHNIQUE: CT scan of the abdomen and pelvis performed using helical scanning technique with dynamic intravenous contrast injection. No oral contrast. Images reviewed with lung, soft tissue, and bone windows. Reconstructed coronal and sagittal MPR images reviewed. Delayed images for evaluation of the urinary system also acquired. All images stored on PACS. All CT scanners at this facility use dose modulation, iterative reconstruction, and/or weight based d osing when appropriate to reduce radiation dose to as low as reasonably achievable (ALARA). [facility]: Dose Right [facility]: CareDose [facility]: Dose Right [facility]: Teradose 4D [facility]: Oxynade CONTRAST TYPE AND DOSE: contrast/concentration: Isovue 350.00 mg/ml; Total Contrast Delivered: 100.0 ml; Total Saline Delivered: 72.0 ml RENAL FUNCTION: BUN 13 creatinine 1.03. RADIATION DOSE: CT Rad equipment meets quality standard of care and radiation dose reduction techniq ues were employed. CTDIvol: 20.6 - 24.8 mGy. DLP: 2692 mGy-cm.. LIMITATIONS: None. FINDINGS: LOWER CHEST: No significant findings. No nodules or infiltrates. LIVER: Normal size. No masses. No dilated ducts. SPLEEN: Normal size. No focal lesions. PANCREAS: No masses. No significant calcifications. Again seen is mild inflammatory stranding in the peripancreatic soft tissues primarily adjacent to the pancreatic head. No peripancreatic fluid en ections. Pancreatic duct not dilated. GALLBLADDER: No identified stones by CT criteria. No inflammatory changes to suggest cholecystitis. ADRENAL GLANDS: No significant masses or asymmetry. RIGHT KIDNEY AND URETER: No solid masses. No significant calcifications. No hydronephrosis or hyd roureter. LEFT KIDNEY AND URETER: No solid masses. No significant calcifications. No hydronephrosis or hydr oureter. AORTA AND VESSELS: No aneurysm. No dissection. Renal arteries, SMA, celiac without stenosis. RETROPERITONEUM: No retroperitoneal adenopathy, hemorrhage or masses. BOWEL AND PERITONEAL CAVITY: No masses or inflammatory changes. Small duodenum diverticulum in the 3 rd portion. No free fluid or peritoneal masses. APPENDIX: Not visualized. PELVIS: No mass. No free fluid. Normal bladder. ABDOMINAL WALL: No masses. No hernias. BONES: No significant or acute findings. OTHER: No other significant finding. IMPRESSION: 1. MILD INFLAMMATORY STRANDING IN IN THE PERIPANCREATIC SOFT TISSUES ADJACENT TO THE PANCREATIC HEAD, CONSISTENT WITH PANCREATITIS. SIMILAR APPEARANCE TO THE PRIOR STUDY. NO EVIDENCE OF PSEUDOCYST OR ABNORMAL FLUID COLLECTION. 2. NO OTHER SIGNIFICANT OR ACUTE FINDING IN THE ABDOMEN OR PELVIS ON CT SCAN WITH IV CONTRAST. TECHNICAL DOCUMENTATION: JOB ID: [id number] Quality ID # [id number]: Final reports with documentation of one or more dose reduction techniques (e.g., Au tomated exposure control, adjustment of the mA and/or kV according to patient size, use of iterative reconstruction technique) 2010 [employer] All Rights Reserved Reading location - IP/workstation name: [email or web address]
[2019-07-10] MEDS ORDERED: BISACODYL 5 MG TABEC PO ONE ×2 (11:33→14:00)
[2019-07-10] MEDS: MAGNESIUM HYDROXIDE SUSP 30 ML UDCUP PO PRN ×2 (13:45→21:25)
--- NOTE | 2019-07-10 17:00 | PDOC PROGRESS REPORT ---
Subjective Progress Note for:: 07/10/19 Subjective:: KATARZYNA BAJWA is a 53 year old male who comes into the emergency room with about a 12-hour history now of abdominal pain. Patient states that last night after eating at [employer] about an hour later he started having abdominal pain. Really states he did have anything unusual and the pain started in the epigastric region, all throughout the night it was like a 6 or 7 out of 10. Pain is currently a 2 out of 10 which may be related to IV morphine. Patient states he had no nausea no vomiting and no diarrhea last night. No one else in the family is sick or having pain. Patient's comments that on she felt like the patient may be a little more distended with his abdomen but patient denies having to loosen his belt or pants or feeling uncomfortable . Patient's other past medical history includes hypertension and a previous appendectomy, as well as 2 months ago having his right shoulder repaired for what sounds to be rotator cuff. States he drinks alcohol maybe 2 or 3 times per year and last alcohol was probably a couple of months ago. Never in excess. 07/10/2019. No acute events overnight. Abdominal pain improved. Patient is p.o. tolerant. Has not had a bowel movement. Passing flatus. Reason For Visit: PANCREATITIS, ABDOMINAL PAIN, OBSEITY, RIGHT Physical Exam Vital Signs: Temp Pulse Resp BP Pulse Ox 98.6 F 87 20 137/78 H 97 07/10/19 11:30 07/10/19 11:30 07/10/19 11:30 07/10/19 11:30 07/10/19 11:30 Intake & Output 07/09/19 07/10/19 07/11/19 06:59 06:59 06:59 Intake Total 3491 4603 1000 Output Total 3000 1200 Balance 491 3403 1000 Weight 99.5 kg 99.4 kg General appearance: PRESENT: no acute distress, well-developed, well-nourished Head exam: PRESENT: atraumatic, normocephalic Respiratory exam: PRESENT: clear to auscultation case. ABSENT: rales, rhonchi, wheezes Cardiovascular exam: PRESENT: RRR. ABSENT: diastolic murmur, rubs, systolic murmur GI/Abdominal exam: PRESENT: normal bowel sounds, soft, tenderness. ABSENT: distended, guarding, mass, organolmegaly, rebound Neurological exam: PRESENT: alert, awake, oriented to person, oriented to place, oriented to time, oriented to situation, CN II-XII grossly intact. ABSENT: motor sensory deficit Results Laboratory Results: 07/10/19 05:16 07/10/19 05:16 07/09/19 07/10/19 07/10/19 17:04 05:16 05:16 WBC 12.1 H RBC 4.39 Hgb 13.9 Hct 38.9 MCV 89 MCH 31.7 MCHC 35.8 RDW 12.5 Plt Count 175 Seg Neutrophils % 76.6 Sodium 135.8 L 136.6 L Potassium 3.7 4.1 Chloride 98 101 Carbon Dioxide 27 26 Anion Gap 11 10 BUN 9 9 Creatinine 0.91 0.87 Est GFR ( Amer) > 60 > 60 Glucose 122 H 106 Calcium 9.1 8.8 Lipase 40.6 07/07/19 05:13 Creatine Kinase 81 Impressions: Abdomen Ultrasound 07/07/19 06:09 IMPRESSION: 1. No gallstones. 2. Hepatic steatosis. Abdomen/Pelvis CT 07/09/19 00:00 IMPRESSION: 1. MILD INFLAMMATORY STRANDING IN IN THE PERIPANCREATIC SOFT TISSUES ADJACENT TO THE PANCREATIC HEAD, CONSISTENT WITH PANCREATITIS. SIMILAR APPEARANCE TO THE PRIOR STUDY. NO EVIDENCE OF PSEUDOCYST OR ABNORMAL FLUID COLLECTION. 2. NO OTHER SIGNIFICANT OR ACUTE FINDING IN THE ABDOMEN OR PELVIS ON CT SCAN WITH IV CONTRAST. Assessment and Plan - Diagnosis (1) Acute pancreatitis Qualifiers: Pancreatitis type: unspecified pancreatitis type Acute pancreatitis complication: no infection or necrosis Qualified Code(s): K85.90 - Acute pancreatitis without necrosis or infection, unspecified Is this a current diagnosis for this admission?: Yes Plan: Improving. P.o. tolerant. Passing flatus. Has not had a bowel movement. Lipase trending down. Continue supportive measures. Taper opioids if possible. Continue IV fluid resuscitation. (2) Abdominal pain Qualifiers: Abdominal location: generalized Qualified Code(s): R10.84 - Generalized abdominal pain Is this a current diagnosis for this admission?: Yes Plan: Resolved. Due to #1. (3) Constipation Qualifiers: Constipation type: drug induced constipation Qualified Code(s): K59.03 - Drug induced constipation Is this a current diagnosis for this admission?: Yes Plan: Likely opioid induced due to acute pancreatitis. Taper opiates. Will start on bowel regimen. (4) Hypertension Is this a current diagnosis for this admission?: Yes Plan: Euvolemic. Normotensive. Continue current regimen. Outpatient PCP follow-up. (5) Obesity Qualifiers: Obesity type: due to excess calories Is this a current diagnosis for this admission?: Yes Plan: BMI 29.7. TSH WNL. Diet and lifestyle modification recommended. - Plan Summary Summary: 07/07/2019 Vital signs are stable pulse is 85 patient is afebrile blood pressure slightly elevated 155/92, oxygen saturation is 100% on room air Told patient and his that will get a keep him n.p.o. except for possibly sips of water with medications although this will only be for Pancrease. We will give him IV fluids. The pain medications. Repeat serial lipase levels CT scan shows early pancreatitis which may be on the basis of the tramadol Keep patient comfortable with IV morphine PRN. Patient is medically stable to move to the floor 07/08/2019 Patient is using very little pain medication This morning patient's temperature was 99.31 and later it was 99.4. On admission it was 97.7 Pressure is 142/88. Restarted his lisinopril/CTZ today. Blood cell count on admission was 10.8 this morning it was 10.0 Lipase on admission was 1747 today it had gone down to 516, amylase on admission was 251 today it was 148 He started him on clear liquids this morning and told the nurse to advance diet as tolerated. Patient was having no significant abdominal pain I anticipate discharging him to home tomorrow if he does well today on his diet His is been in the room at all times when I was speaking with the patient, they have no questions 07/09/2019 Patient's vital signs temperature 98.4 pulse is up slightly 110 blood pressure 138/77 96% saturation on room air White blood cell count is gone up slightly to 14,000 Lipase is back to normal at 86 I told patient that if he did well with his meals today that I would discharge him late in the afternoon. Ever he still having little discomfort with meals someone to keep him overnight. Also because his respirations are up slightly he is a little tachycardic and his white count is gone up I am going to repeat his CT scan of the abdomen and pelvis with IV contrast to noon. If that is unchanged or no worse anticipate he can go home tomorrow morning. Patient is using hardly no analgesics
[2019-07-10] MEDS: DOCUSATE SODIUM 100 MG CAPSULE PO SCH (17:11)
[2019-07-10] MEDS: ACETAMINOPHEN 325 MG TABLET PO PRN (21:25)
[2019-07-10] MEDS: FAMOTIDINE 20 MG TABLET PO SCH (21:26)
[2019-07-11] MEDS: LIPASE/PROTEASE/AMYLASE 1 CAP CAPSULE.DR PO SCH (07:57)
[2019-07-11] MEDS: ENOXAPARIN SODIUM INJ 40 MG/0.4 ML DISP.SYRIN SUBCUT SCH (10:04)
[2019-07-11] MEDS: DOCUSATE SODIUM 100 MG CAPSULE PO SCH (10:05)
[2019-07-11] MEDS: FAMOTIDINE 20 MG TABLET PO SCH (10:11)
[2019-07-11] MEDS: LISINOPRIL 10 MG TABLET PO SCH (10:11)
[2019-07-11] MEDS: HYDROCHLOROTHIAZIDE 12.5 MG TABLET PO SCH (10:11)
[2019-07-11 13:41] VITALS: BP 123/79
--- NOTE | 2019-07-14 13:48 | PDOC DISCHARGE SUMMARY ---
Impression - Admit/DC Date/PCP Admission Date/Primary Care Provider: 07/07/19 10:16 GISELE ROSS MD Discharge Date: 07/14/19 - Discharge Diagnosis (1) Acute pancreatitis Is this a current diagnosis for this admission?: Yes (2) Abdominal pain Is this a current diagnosis for this admission?: Yes (3) Constipation Is this a current diagnosis for this admission?: Yes (4) Hypertension Is this a current diagnosis for this admission?: Yes (5) Obesity Is this a current diagnosis for this admission?: Yes - Assessment Summary: 07/07/2019 Vital signs are stable pulse is 85 patient is afebrile blood pressure slightly elevated 155/92, oxygen saturation is 100% on room air Told patient and his that will get a keep him n.p.o. except for possibly sips of water with medications although this will only be for Pancrease. We will give him IV fluids. The pain medications. Repeat serial lipase levels CT scan shows early pancreatitis which may be on the basis of the tramadol Keep patient comfortable with IV morphine PRN. Patient is medically stable to move to the floor 07/08/2019 Patient is using very little pain medication This morning patient's temperature was 99.31 and later it was 99.4. On admission it was 97.7 Pressure is 142/88. Restarted his lisinopril/CTZ today. Blood cell count on admission was 10.8 this morning it was 10.0 Lipase on admission was 1747 today it had gone down to 516, amylase on admission was 251 today it was 148 He started him on clear liquids this morning and told the nurse to advance diet as tolerated. Patient was having no significant abdominal pain I anticipate discharging him to home tomorrow if he does well today on his diet His is been in the room at all times when I was speaking with the patient, they have no questions 07/09/2019 Patient's vital signs temperature 98.4 pulse is up slightly 110 blood pressure 138/77 96% saturation on room air White blood cell count is gone up slightly to 14,000 Lipase is back to normal at 86 I told patient that if he did well with his meals today that I would discharge him late in the afternoon. Ever he still having little discomfort with meals someone to keep him overnight. Also because his respirations are up slightly he is a little tachycardic and his white count is gone up I am going to repeat his CT scan of the abdomen and pelvis with IV contrast to noon. If that is unchanged or no worse anticipate he can go home tomorrow morning. Patient is using hardly no analgesics - Additional Information Resuscitation Status: Full Code Discharge Diet: As Tolerated Discharge Activity: Activity As Tolerated, Balance Activity w/Rest Referrals: ESTEVAN CHEEMA PA-C [PHYSICIAN [employer] [facility] MEMBER] - 07/18/19 9:45 am Prescriptions: Lisinopril 40 mg PO DAILY 30 Days #60 tablet Home Medications: Cetirizine HCl [Zyrtec 10 mg Tablet] 10 mg PO DAILY 07/07/19 Lisinopril 40 mg PO DAILY 30 Days #60 tablet 07/11/19 History of Present Illiness History of Present Illness: KATARZYNA BAJWA is a 53 year old male who comes into the emergency room with about a 12-hour history now of abdominal pain. Patient states that last night after eating at [employer] about an hour later he started having abdominal pain. Really states he did have anything unusual and the pain started in the epigastric region, all throughout the night it was like a 6 or 7 out of 10. Pain is currently a 2 out of 10 which may be related to IV morphine. Patient states he had no nausea no vomiting and no diarrhea last night. No one else in the family is sick or having pain. Patient's comments that on she felt like the patient may be a little more distended with his abdomen but patient denies having to loosen his belt or pants or feeling uncomfortable . Hospital Course Hospital Course: (1) Acute pancreatitis Resolved. Denied any history of alcoholism, abdominal trauma, or medication ingestion. Lipid panel WNL. Patient's only home medications are lisinopril and hydrochlorothiazide. Hydrochlorothiazide is known to cause pancreatitis in some cases, but not sure if this was the case in this particular patient. HCTZ was DC'd anyway and patient's lisinopril was increased to 20 mg from 10 mg p.o. daily. Patient initially started on aggressive volume resuscitation good problem status. Opioid and non-opioid analgesics. At the day of discharge patient's abdominal pain resolved, having normal bowel movements and p.o. tolerant. (2) Abdominal pain Resolved. Due to #1. (3) Constipation Resolved. Likely opioid induced due to acute pancreatitis. Tapered opioids. Was started on bowel regimen. (4) Hypertension Euvolemic. Normotensive. Home medications are HCTZ and lisinopril. HCTZ was DC'd just in case was the cause of pancreatitis. Lisinopril was increased to 20 mg from 10 mg daily. Normotensive at time of discharge. Patient advised to follow-up with PCP. Voiced understanding. (5) Obesity BMI 29.7. TSH WNL. Diet and lifestyle modification recommended. Physical Exam Vital Signs: Temp Pulse Resp BP Pulse Ox 98.6 F 98 15 123/79 97 07/11/19 13:38 07/11/19 13:38 07/11/19 13:38 07/11/19 13:38 07/11/19 13:38 General appearance: PRESENT: no acute distress, well-developed, well-nourished Head exam: PRESENT: atraumatic, normocephalic Eye exam: PRESENT: conjunctiva pink, EOMI, PERRLA. ABSENT: scleral icterus Ear exam: PRESENT: normal external ear exam Mouth exam: PRESENT: moist, tongue midline Neck exam: ABSENT: carotid bruit, JVD, lymphadenopathy, thyromegaly Respiratory exam: PRESENT: clear to auscultation case. ABSENT: rales, rhonchi, wheezes Cardiovascular exam: PRESENT: RRR. ABSENT: diastolic murmur, rubs, systolic murmur Pulses: PRESENT: normal dorsalis pedis pul Vascular exam: PRESENT: normal capillary refill GI/Abdominal exam: PRESENT: normal bowel sounds, soft. ABSENT: distended, guarding, mass, organolmegaly, rebound, tenderness Rectal exam: PRESENT: deferred Extremities exam: PRESENT: full ROM. ABSENT: calf tenderness, clubbing, pedal edema Neurological exam: PRESENT: alert, awake, oriented to person, oriented to place, oriented to time, oriented to situation, CN II-XII grossly intact. ABSENT: motor sensory deficit Psychiatric exam: PRESENT: appropriate affect, normal mood. ABSENT: homicidal ideation, suicidal ideation Skin exam: PRESENT: dry, intact, warm. ABSENT: cyanosis, rash Results Laboratory Results: WBC 12.1 10^3/uL (4.0-10.5) H 07/10/19 05:16 RBC 4.39 10^6/uL (4.35-5.55) 07/10/19 05:16 Hgb 13.9 g/dL (13.5-17.0) 07/10/19 05:16 Hct 38.9 % (37.9-51.0) 07/10/19 05:16 MCV 89 fl (80-97) 07/10/19 05:16 MCH 31.7 pg (27.0-33.4) 07/10/19 05:16 MCHC 35.8 g/dL (32.0-36.0) 07/10/19 05:16 RDW 12.5 % (11.5-14.0) 07/10/19 05:16 Plt Count 175 10^3/uL (150-450) 07/10/19 05:16 Lymph % (Auto) 11.7 % (13-45) L 07/10/19 05:16 Wells % (Auto) 9.7 % (3-13) 07/10/19 05:16 Eos % (Auto) 1.6 % (0-6) 07/10/19 05:16 Baso % (Auto) 0.4 % (0-2) 07/10/19 05:16 Absolute Neuts (auto) 9.3 10^3/uL (1.7-8.2) H 07/10/19 05:16 Absolute Lymphs (auto) 1.4 10^3/uL (0.5-4.7) 07/10/19 05:16 Absolute Monos (auto) 1.2 10^3/uL (0.1-1.4) 07/10/19 05:16 Absolute Eos (auto) 0.2 10^3/uL (0.0-0.6) 07/10/19 05:16 Absolute Basos (auto) 0.1 10^3/uL (0.0-0.2) 07/10/19 05:16 Seg Neutrophils % 76.6 % (42-78) 07/10/19 05:16 Sodium 136.6 mmol/L (137-145) L 07/10/19 05:16 Potassium 4.1 mmol/L (3.6-5.0) 07/10/19 05:16 Chloride 101 mmol/L (98-107) 07/10/19 05:16 Carbon Dioxide 26 mmol/L (22-30) 07/10/19 05:16 Anion Gap 10 (5-19) 07/10/19 05:16 BUN 9 mg/dL (7-20) 07/10/19 05:16 Creatinine 0.87 mg/dL (0.52-1.25) 07/10/19 05:16 Est GFR ( Amer) > 60 (>60) 07/10/19 05:16 Est GFR (MDRD) Non-Af > 60 (>60) 07/10/19 05:16 Glucose 106 mg/dL (75-110) 07/10/19 05:16 Calcium 8.8 mg/dL (8.4-10.2) 07/10/19 05:16 Magnesium 1.8 mg/dL (1.6-2.3) 07/08/19 05:05 Total Bilirubin 1.8 mg/dL (0.2-1.3) H 07/08/19 05:05 Direct Bilirubin 0.2 mg/dL (0.0-0.4) 07/08/19 05:05 Neonat Total Bilirubin Not Reportable 07/08/19 05:05 Neonat Direct Bilirubin Not Reportable 07/08/19 05:05 Neonat Indirect Bili Not Reportable 07/08/19 05:05 AST 27 U/L (17-59) 07/08/19 05:05 ALT 26 U/L (<50) 07/08/19 05:05 Alkaline Phosphatase 60 U/L (38-126) 07/08/19 05:05 Creatine Kinase 81 U/L (55-170) 07/07/19 05:13 Total Protein 6.6 g/dL (6.3-8.2) 07/08/19 05:05 Albumin 3.9 g/dL (3.5-5.0) 07/08/19 05:05 Triglycerides 84 mg/dL (<150) 07/08/19 05:05 Cholesterol 154.37 mg/dL (0-200) 07/08/19 05:05 LDL Cholesterol Direct 104 mg/dL (<100) H 07/08/19 05:05 VLDL Cholesterol 17.0 mg/dL (10-31) 07/08/19 05:05 HDL Cholesterol 44 mg/dL (>40) 07/08/19 05:05 Amylase 148 U/L (30-110) H 07/08/19 05:05 Lipase 40.6 U/L (23-300) 07/10/19 05:16 TSH 1.78 uIU/mL (0.47-4.68) 07/07/19 05:13 Urine Color YELLOW 07/07/19 04:35 Urine Appearance CLEAR 07/07/19 04:35 Urine pH 5.0 (5.0-9.0) 07/07/19 04:35 Ur Specific [place] 1.021 07/07/19 04:35 Urine Protein NEGATIVE mg/dL (NEGATIVE) 07/07/19 04:35 Urine Glucose (UA) NEGATIVE mg/dL (NEGATIVE) 07/07/19 04:35 Urine Ketones NEGATIVE mg/dL (NEGATIVE) 07/07/19 04:35 Urine Blood NEGATIVE (NEGATIVE) 07/07/19 04:35 Urine Nitrite NEGATIVE (NEGATIVE) 07/07/19 04:35 Urine Bilirubin NEGATIVE (NEGATIVE) 07/07/19 04:35 Urine Urobilinogen NEGATIVE mg/dL (<2.0) 07/07/19 04:35 Ur Leukocyte Esterase NEGATIVE (NEGATIVE) 07/07/19 04:35 Urine WBC (Auto) 1 /HPF 07/07/19 04:35 Urine RBC (Auto) 1 /HPF 07/07/19 04:35 U Hyaline Cast (Auto) 1 /LPF 07/07/19 04:35 Urine Mucus (Auto) MOD /LPF 07/07/19 04:35 Urine Ascorbic Acid NEGATIVE (NEGATIVE) 07/07/19 04:35 Impressions: Abdomen Ultrasound 07/07/19 06:09 IMPRESSION: 1. No gallstones. 2. Hepatic steatosis. Abdomen/Pelvis CT 07/07/19 07:46 IMPRESSION: Peripancreatic fat stranding indicating mild early pancreatitis. Abdomen/Pelvis CT 07/09/19 00:00 IMPRESSION: 1. MILD INFLAMMATORY STRANDING IN IN THE PERIPANCREATIC SOFT TISSUES ADJACENT TO THE PANCREATIC HEAD, CONSISTENT WITH PANCREATITIS. SIMILAR APPEARANCE TO THE PRIOR STUDY. NO EVIDENCE OF PSEUDOCYST OR ABNORMAL FLUID COLLECTION. 2. NO OTHER SIGNIFICANT OR ACUTE FINDING IN THE ABDOMEN OR PELVIS ON CT SCAN WITH IV CONTRAST. Plan Time Spent: Greater than 30 Minutes Stroke Is this a Stroke Patient?: No Acute Heart Failure - Is this a Heart Failure Patient?: No
== END 2019-07-11 14:02 | disposition home or self-care (01) | DRG 440 ==
LOC: ER 04:16 → EH 07:56 → OBSVTOIN 10:16 → 4S 17:36
PROVIDERS: ADMIT Hospitalist; ATTEND Hospitalist
DX: K85.90 Acute pancreatitis without necrosis or infection, unspecified (principal); K59.00 Constipation, unspecified; I10 Essential (primary) hypertension; E66.09 Other obesity due to excess calories; K59.03 Drug induced constipation; T40.2X5A Adverse effect of other opioids, initial encounter; Y92.9 Unspecified place or not applicable; Z68.29 Body mass index [BMI] 29.0-29.9, adult
CPT/HCPCS: 36415; 74177; 76705; 80048; 80053; 80061; 81001; 82150; 82550; 83690; 83735; 84443; 85025; 96361; 96374; 96375; 96376; 99285; J2270; J2405; J3490; J7030; S0028

== ENCOUNTER → 2020-03-12 | Outpatient (CLI) | payer OTHER ==
[2020-03-12 08:23] LABS: ABSOLUTE BASOPHILS # (AUTO) 0.1 10^3/uL (0.0-0.2); ABSOLUTE EOSINOPHILS # (AUTO) 0.1 10^3/uL (0.0-0.6); ABSOLUTE LYMPHOCYTES (AUTO) 2.1 10^3/uL (0.5-4.7); ABSOLUTE MONOCYTES (AUTO) 0.5 10^3/uL (0.1-1.4); ABSOLUTE NEUT (AUTO) 3.3 10^3/uL (1.7-8.2); BASOPHILS % (AUTO) 0.8 % (0-2); EOSINOPHILS % (AUTO) 1.7 % (0-6); HEMATOCRIT 45.1 % (37.9-51.0); LYMPHOCYTES % (AUTO) 34.8 % (13-45); MEAN CORPUSCULAR HEMOGLOBIN 31.5 pg (27.0-33.4); MEAN CORPUSCULAR HGB CONC 35.4 g/dL (32.0-36.0); MEAN CORPUSCULAR VOLUME 89 fl (80-97); MONOCYTES % (AUTO) 8.1 % (3-13); PLATELET COUNT 195 10^3/uL (150-450); RED BLOOD COUNT 5.08 10^6/uL (4.35-5.55); RED CELL DISTRIBUTION WIDTH 13.5 % (11.5-14.0); SEGMENTED NEUTROPHILS % (AUTO) 54.6 % (42-78); TOTAL CELLS COUNTED % (AUTO) 100 %; WHITE BLOOD COUNT 6.1 10^3/uL (4.0-10.5)
[2020-03-12 08:49] LABS: ALBUMIN 4.6 g/dL (3.5-5.0); ALKALINE PHOSPHATASE 67 U/L (38-126); ANION GAP 9 (5-19); ASPARTATE AMINO TRANSFERASE 35 U/L (17-59); BILIRUBIN,DIRECT 0.2 mg/dL (0.0-0.4); BILIRUBIN,TOTAL 0.8 mg/dL (0.2-1.3); BLOOD UREA NITROGEN 13 mg/dL (7-20); CALCIUM 9.4 mg/dL (8.4-10.2); CARBON DIOXIDE 28 mmol/L (22-30); CHLORIDE 103 mmol/L (98-107); CHOLESTEROL 171.52 mg/dL (0-200); GLUCOSE 106 mg/dL (75-110); POTASSIUM 4.7 mmol/L (3.6-5.0); TOTAL PROTEIN 7.2 g/dL (6.3-8.2); TRIGLYCERIDES 89 mg/dL (<150)
--- NOTE | 2020-03-12 08:52 | RADIOLOGY REPORT (SQ) ---
EXAM DESCRIPTION: C SP 4 OR 5 VIEWS IMAGES COMPLETED DATE/TIME: 03/12/2020 8:43 am REASON FOR STUDY: CERVICALGIA I10 ESSENTIAL (PRIMARY) HYPERTENSION E66.3 OVERWEIGHT Z13.220 ENCOU NTER FOR SCREENING FOR LIPOID DISORDERS COMPARISON: None. NUMBER OF VIEWS: Five views. TECHNIQUE: AP, lateral, obliques and odontoid radiographic images acquired of the cervical spine. LIMITATIONS: None. FINDINGS: MINERALIZATION: Normal. ALIGNMENT: Anatomic. VERTEBRAE: Vertebral bodies of normal height. DISCS: Mild disc space narrowing at C6-C7 with small anterior osteophyte. FORAMINA: No osteophytes or foraminal narrowing. LATERAL AND POSTERIOR ELEMENTS: Facets, lateral masses and spinous processes without significant find ings. HARDWARE: None in the spine. SOFT TISSUES: No masses or calcifications. Lung apices clear. OTHER: No other significant finding. IMPRESSION: Mild disc degenerative disease at C6-C7. TECHNICAL DOCUMENTATION: JOB ID: [id number] 2010 [employer]- All Rights Reserved Reading location - IP/workstation name: [email or web address]
[2020-03-12 09:00] LABS: DIRECT LDL 108 mg/dL (<100)
== END ==
LOC: OD 07:16
PROVIDERS: ATTEND Family Medicine Geriatric Medicine
DX: M50.323 Other cervical disc degeneration at C6-C7 level (principal); I10 Essential (primary) hypertension; E66.3 Overweight; Z13.220 Encounter for screening for lipoid disorders
CPT/HCPCS: 36415; 72050; 80053; 80061; 84443; 85025